=== PATIENT | male | born 2000 | race Caucasian/White ===

== ENCOUNTER 2018-09-28 18:47 | Emergency (ER) | payer SELFPAY ==
[~2018-09-28] VITALS: Ht 172.7 cm; Wt 59.1 kg
[2018-09-28 18:59] VITALS: BP 136/80; PULSE 122; TEMP 99.3
[2018-09-28] MEDS ORDERED: LAMISIL250 M1 (19:04)
[2018-09-28] MEDS ORDERED: FLEXERIL 1010 MG/TAB PO (19:42)
== END 2018-09-28 20:00 | disposition home or self-care (01) ==
LOC: COL.ER 18:47
DX: M54.5 Low back pain (principal); X50.0XXA Overexertion from strenuous movement or load, initial encounter; Y99.0 Civilian activity done for income or pay

== ENCOUNTER → 2020-09-20 | Outpatient (CLI) | payer SELFPAY ==
[~2020-09-20] MED LIST: FLEXERIL 1010 MG/TAB PO; LAMISIL250 M1
== END ==
LOC: COL.RAD 09-04 07:30
DX: Q85.01 Neurofibromatosis, type 1 (principal)
CPT/HCPCS: A9585